=== PATIENT | male | born 1935 | race Caucasian/White ===

== ENCOUNTER 2019-07-12 12:33 | Outpatient (CLI) | payer OTHER ==
[~2019-07-12 12:33] MED LIST: BENA5TAB39 PO; CELE200C PO; DABI150C PO; FENT-90 TD; HYDR-4353 PO; METF-950 PO; PANT-47 PO; SOLI5TAB2 PO; SOTA80TA PO
[2019-07-12 13:15] LABS: C DIFF ANTIGEN NEGATIVE (NEGATIVE); C DIFF SPECIMEN=DIARRHEA? ACCEPTABLE; C DIFFICILE TOXINS A&B NEGATIVE (Neg)
== END 2019-07-12 23:59 | disposition home or self-care (01) ==
LOC: LAB SPEC 12:33
PROVIDERS: ATTEND Internal Medicine Infectious Disease
DX: I10 Essential (primary) hypertension (principal); E11.9 Type 2 diabetes mellitus without complications
CPT/HCPCS: 87324; 87449